=== PATIENT | female | born 1960 | race Asian ===

== ENCOUNTER 2024-03-05 14:45 | Emergency (ER) | payer SELFPAY ==
[2024-03-05 14:46] VITALS: BP 158/83; BMI 26.0
[2024-03-05 14:49] VITALS: BP 158/83
[2024-03-05 15:00] VITALS: BP 156/85
[2024-03-05 15:00] LABS: % Basophils 0.5 % (0-2); % Eosinophils 1.7 % (0-6); % Immature Granulocytes 0.2 % (0-0.5); % Monocytes 8.2 % (1.7-9.3); % Neutrophils 72.4 % (42.2-75.2); Absolute Eosinophils 0.1 10^3/uL (0-0.7); Absolute Lymphocytes 1.4 10^3/uL (1.2-3.4); Absolute Monocytes 0.7 10^3/uL (0.1-0.6); Absolute Neutrophils 5.9 10^3/uL (1.4-6.5); Hematocrit 38.8 % (37.0-47.0); Hemoglobin 13.1 g/dL (12.0-16.0); Mean Corp Hgb Conc. 33.8 g/dL (33.0-37.0); Mean Corpuscular Volume 88.8 fL (81.0-99.0); Mean Platelet Volume 9.6 fL (7.4-10.4); Nucleated Red Blood Cells % 0 %; Platelet Count 227 10^3/uL (130-400); Red Blood Cell Count 4.37 10^6/uL (4.20-5.40); Red Cell Dist. Width 13.2 % (11.5-14.5); White Blood Cell Count 8.2 10^3/uL (4.8-10.8)
[2024-03-05 15:23] LABS: Troponin I < 0.012 ng/ml
[2024-03-05] MEDS: NSS 1000 IV (15:26)
[2024-03-05 15:31] LABS: ALT (SGPT) 57 U/L (0-35); AST (SGOT) 61 U/L (14-36); Albumin 4.1 g/dl (3.5-5.0); Alkaline Phosphatase 85 U/L (38-126); Blood Urea Nitrogen 13 mg/dl (7-17); Calcium 8.6 mg/dl (8.4-10.2); Carbon Dioxide 24 mmol/L (22-30); Chloride 103 mmol/L (98-107); Estimated Creatinine Clearance 60 ml/min; Glucose 166 mg/dl (70-99); Potassium 3.7 mmol/L (3.5-5.1); Sodium 134 mmol/L (135-145); Total Bilirubin 0.4 mg/dl (0.2-1.3); Total Protein 7.1 g/dl (6.3-8.2); eGFR > 60.00
[2024-03-05 16:00] VITALS: BP 154/78
[2024-03-05 16:00] LABS: D-Dimer 0.36 ug/mlFEU (0.00-0.50)
[2024-03-05 17:09] VITALS: BP 148/58
[2024-03-05 18:00] VITALS: BP 158/95
--- NOTE | 2024-03-05 18:03 | ED.GENMED ---
History of Present Illness
General
Chief Complaint: Fainting/Passed Out
Source: patient and family
Exam Limitations: none
Time Seen by Provider: 03/05/24 15:02
Travel History
Have you had any contact with someone who has COVID-19?: No
Do you have any symptoms of coronavirus? Fever > 100 degrees, chills, cough, shortness of breath, sore throat, loss of taste or smell, muscle aches, or headache?: No
History of Present Illness
History of Present Illness:
63-year-old female presents with a syncopal episode while on a tour. She felt claustrophobic then lightheaded sat down brief LOC. Some questionable brief right-sided symptoms neurologically but quickly resolved. No chest pain shortness of breath
headache. Just feels mildly weak on arrival.
Past History
Past History
ED Past Medical History: Hypercholesterolemia and Hypothyroidism
ED Past Surgical History: Cholecystectomy and Other (Partial thyroidectomy. Umbilical hernia repair)
Review of Systems
Review of Systems
All Other Systems: Not applicable
Respiratory: Denies trouble breathing
Cardiac: Denies chest pain
Phy Exam
Physical Exam
Physical Exam:
GENERAL: Alert and oriented in no apparent distress
EYE: Orbits normal.
NECK: Supple. No carotid bruit
ENT: Pharynx without erythema
CARDIAC: Regular rate and rhythm without any obvious murmurs.
LUNGS: Clear breath sounds,normal
ABDOMEN: Soft, without focal tenderness or distention
NEUROLOGICAL: Alert and oriented , cranial nerves II through XII intact. Speech normal. [id number] normal.
SKIN: Warm and dry, no rash or lesion, no discoloration, skin intact.
MUSCULOSKELETAL: No edema,no deformity.Good color
PSYCH: Normal and appropriate interaction.
Course
Orders/Labs/Results
Orders:
Orders
03/05/24 14:50
Electrocardiogram (*1) Urgent
Reason for Study: Syncope
Electrocardiogram (*1) Urgent
Reason for Study: Syncope
03/05/24 14:51
EKG- Treatment ONCE
03/05/24 14:52
Complete Blood Count/With Diff Urgent
Comprehensive Metabolic Panel Urgent
Troponin I Urgent
03/05/24 15:16
CT Head W/o Iv Contrast Urgent
Comment:
Reason For Exam: Syncope with questionable right-sided weakness
03/05/24 15:17
0.9% Sodium Chloride 1000 ml [Nss] 1,000 ml IV BOLUS
03/05/24 15:27
D-Dimer Urgent
Abnormal Lab Results
03/05/24
14:52
Absolute Monos (auto) 0.7 H 10^3/uL
(0.1-0.6)
Lymphocytes % 17.0 L %
(20.5-51.1)
Sodium 134 L mmol/L
(135-145)
Glucose 166 H mg/dl
(70-99)
AST 61 H U/L
(14-36)
ALT 57 H U/L
(0-35)
03/05/24 14:52
03/05/24 14:52
Vital Signs
Initial and Last Documented VS:
Initial Vital Signs
Temp Pulse Resp BP Pulse Ox
97.9 F 89 14 158/83 100
03/05/24 14:46 03/05/24 14:46 03/05/24 14:46 03/05/24 14:46 03/05/24 14:46
Last Documented Vital Signs
Temp Pulse Resp BP Pulse Ox
97.9 F 99 17 154/78 100
03/05/24 14:46 03/05/24 16:00 03/05/24 16:00 03/05/24 16:00 03/05/24 16:00
*Radiology
Radiology exam reviewed: radiology read reviewed (Negative head CT)
*Pulse Oximetry
Patient hypoxic: no
*EKG
Interpreted by ED Provider?: Yes
Interpretation: normal
Comparison EKG: no comparison EKG present
Heart Rate: 88
Rate: normal
Rhythm: sinus
[place]: normal axis
Interval: normal interval
QRS Pattern: normal QRS
Ischemia: no ischemia
*[employer] Interpretation
Rate: normal
Interpretation: normal
Heart Rate: 88
*Critical Care Note
Total Time (30-74mins, 75-104mins- exclusive of procedures): Not Applicable
Update Note
Update Note:
Patient is remained stable and asymptomatic. Story and history all consistent with vasovagal syncope. Discharged to follow-up
ED Attending Note
-
Portions of this chart may have been created with voice recognition software.� Occasional wrong word or��sound alike� substitutions may have occurred due to the inherent limitations of voice recognition software.
Discharge Plan
Departure
Patient Disposition: Home (Routine Discharge)
Date of Disposition: 03/05/24
Time of Disposition: 18:05
Patient with high blood pressure during this ER visit?: Yes
Discharge Problem:
Syncope
Instructions: Syncope (Fainting) (DC), BLOOD PRESSURE
Referrals:
NONE,* [Family Provider] -
Activity Restrictions/Additional Instructions:
Please return with any concerning or recurrent symptoms.
Interventions
Interventions:
*Risk Screen - Suicide Last Done: 03/05/24 14:53
*General Assessment Last Done: 03/05/24 14:54
*Neglect/Abuse Screening Last Done: 03/05/24 14:53
ED- Fall Risk Assessment Last Done: 03/05/24 14:52
*ED COVID-19 Vaccine History Last Done: 03/05/24 14:52
ED- Cardiac Assessment Last Done: 03/05/24 16:00
ED- Neurological Assessment Last Done: 03/05/24 16:00
Discharge Date and Time
Print Language: SPANISH
== END 2024-03-05 18:20 | disposition home or self-care (01) ==
LOC: EMR 14:45
PROVIDERS: EMERGENCY PHYSICIAN Emergency Medicine
DX: R55 Syncope and collapse (principal); R53.1 Weakness; R03.0 Elevated blood-pressure reading, without diagnosis of hypertension; E03.9 Hypothyroidism, unspecified; E78.00 Pure hypercholesterolemia, unspecified; Z90.49 Acquired absence of other specified parts of digestive tract; Z88.6 Allergy status to analgesic agent; Z88.8 Allergy status to other drugs, medicaments and biological substances
CPT/HCPCS: 99284; 96360; 70450; 80053; 84484; 85025; 85379; 93005